=== PATIENT | male | born 1955 | race Caucasian/White ===

== ENCOUNTER 2020-01-09 10:01 | Outpatient (CLI) | payer OTHER, SELFPAY ==
--- NOTE | ~2020-01-09 | XR_ITS ---
EXAMINATION:XR_[id number] DATE: 01/09/2020 10:40 INDICATION: Neck pain TECHNIQUE: AP, lateral, lateral swimmers and odontoid views of the cervical spine are provided. COMPARISON: None FINDINGS: Alignment is normal. There is reversal of the normal cervical lordosis.The odontoid is inta ct. No fracture is identified. The vertebral body heights are maintained. There is mild loss of inter vertebral disc space height at C5-6 and C6-7. There is moderate to severe multilevel facet and uncove rtebral joint osteoarthritis. IMPRESSION: 1. Moderate to severe cervical spondylosis without acute findings. Reviewed, dictated and finalized at location A.
--- NOTE | ~2020-01-09 | XR_ITS ---
EXAMINATION: XR shoulder LT min 2V DATE: 01/09/2020 10:40 INDICATION: Left shoulder pain. TECHNIQUE: 4 views of left shoulder on 5 radiographs were obtained. COMPARISON: None. FINDINGS: Bone alignment is normal. No fracture. There is mild osteoarthritis of glenohumeral joint a nd severe osteoarthritis of acromioclavicular joint. Calcified left hilar and mediastinal lymph nodes are consistent with old granulomatous disease. IMPRESSION: 1. Polyarticular osteoarthritis. Reviewed, dictated and finalized at location E.
== END 2020-01-09 10:02 | disposition home or self-care (01) ==
PROVIDERS: PCP Internal Medicine; Visit Provider Internal Medicine
DX: M25.512 Pain in left shoulder (principal); M54.2 Cervicalgia
CPT/HCPCS: 72040; 73030

== ENCOUNTER 2021-04-09 17:40 | Outpatient (CLI) | payer MEDICARE, SELFPAY ==
[2021-04-09 20:06] LABS: SARS-CoV-2 RNA PCR Negative (Negative)
== END 2021-04-09 17:41 | disposition home or self-care (01) ==
LOC: CHSLAB 17:51
PROVIDERS: PCP Internal Medicine; Visit Provider Internal Medicine
DX: J06.9 Acute upper respiratory infection, unspecified (principal); Z20.822 Contact with and (suspected) exposure to COVID-19
CPT/HCPCS: C9803; U0003; U0005

== ENCOUNTER 2021-08-04 11:36 | Outpatient (CLI) | payer MEDICARE, SELFPAY ==
[2021-08-04 12:51] LABS: SARS-CoV-2 RNA PCR Negative (Negative)
== END 2021-08-04 11:37 | disposition home or self-care (01) ==
LOC: CHSLAB 11:39
PROVIDERS: PCP Internal Medicine; Visit Provider Nurse Practitioner Family
DX: Z20.822 Contact with and (suspected) exposure to COVID-19 (principal)
CPT/HCPCS: C9803; U0003; U0005

== ENCOUNTER 2021-09-09 11:27 | Outpatient (CLI) | payer MEDICARE, SELFPAY ==
[2021-09-09 15:03] LABS: Influenza Control Valid (Valid)
[2021-09-09 15:28] LABS: SARS-CoV-2 Ag Negative (Negative)
[2021-09-10 21:12] LABS: SARS-CoV-2 RNA PCR Negative
== END 2021-09-09 11:28 | disposition home or self-care (01) ==
LOC: CHSLAB 11:31
PROVIDERS: PCP Internal Medicine; Visit Provider Internal Medicine
DX: J06.9 Acute upper respiratory infection, unspecified (principal); Z20.822 Contact with and (suspected) exposure to COVID-19
CPT/HCPCS: 87081; 87426; 87804; 87880; C9803; U0003; U0005

== ENCOUNTER 2022-01-08 13:20 | Outpatient (CLI) | payer MEDICARE, SELFPAY ==
[2022-01-08] MEDS: diphenhydrAMINE HCl CAP 25 MG CAPSULE PO (13:35)
[2022-01-08] MEDS: ACETAMINOPHEN 325 MG TABLET 650 MG PO (13:35)
[2022-01-08] MEDS: FAMOTIDINE 20 MG TABLET PO (13:35)
[2022-01-08] MEDS: BEBTELOVIMAB 175 MG/2 ML VIAL IV PUSH (14:06)
[2022-01-08 14:12] VITALS: BMI 34.7
[2022-01-08 14:13] VITALS: BP 111/61; PULSE 59; RESP 16; TEMP 36.4; O2SAT 97
--- NOTE | 2022-01-08 14:17 | PC.NURSE ---
Patient here for Bebtelovimab injection r/t being covid positive. Eduction given. Permit signed. Pre meds and IV injection administered. SEE MAR. Tolerated well. Safe exit of hospital.
== END 2022-01-08 13:21 | disposition home or self-care (01) ==
PROVIDERS: PCP Nurse Practitioner Family; Visit Provider Nurse Practitioner Family
DX: U07.1 COVID-19 (principal); I10 Essential (primary) hypertension; J44.9 Chronic obstructive pulmonary disease, unspecified
CPT/HCPCS: M0222; Q0222

== ENCOUNTER 2022-12-24 11:13 | Outpatient (CLI) | payer MEDICARE, SELFPAY ==
[2022-12-24 11:28] LABS: Hematocrit 34.7 % (37.0-46.0); Hemoglobin 11.6 g/dL (12.4-15.3); Mean Corpuscular HGB Conc 33.4 g/dL (32.0-36.0); Mean Corpuscular Hemoglobin 30.1 pg (27.0-31.0); Mean Corpuscular Volume 89.9 fL (78.0-102.0); Mean Platelet Volume 9.3 fl (8.7-11.0); Platelet Count Result 208 K/mm3 (150-420); Red Blood Count 3.86 M/mm3 (4.70-6.10); Red Cell Distribution Width 13.1 % (11.6-14.4); White Blood Count 6.8 K/mm3 (4.8-10.8)
[2022-12-24 12:10] LABS: Appearance Urine Clear (Clear); Bilirubin Urine Negative (Negative); Blood Urine Negative (Negative); Color Urine Light Yellow (Yellow); Glucose Urine UA Negative (Negative); Ketones Urine Negative (Negative); Leukocyte Esterase Ur Negative (Negative); Nitrate Urine Negative (Negative); Protein Urine Negative (Negative); Specific Grav Ur <= 1.005 (1.010-1.020); Urobilinogen Urine 0.2 mg/dL (0.2-1.0); pH Urine 6.5 (5.0-8.0)
[2022-12-24 12:16] LABS: Add Urine Microscopic? NO
[2022-12-24 12:17] LABS: Band Neutrophils Percent 0 % (0-6); Basophils Percent Manual 0 % (0-1); Eosinophils Percent Manual 0 % (1-6); Lymphocytes Absolute Manual 1.42 K/mm3 (1.1-4.5); Lymphocytes Percent Manual 21 % (18-44); Monocytes Absolute Manual 0.88 K/mm3 (0.1-0.90); Monocytes Percent Manual 13 % (3-9); Neutrophils Absolute Manual 4.35 K/mm3 (1.3-6.7); Neutrophils Percent Manual 64 % (46-73); Platelet Estimate Adequate (Adequate); Total Cells Counted 100
[2022-12-24 12:32] LABS: Alanine Aminotransferase 33 U/L (16-63); Albumin Level 3.3 g/dL (3.4-5.0); Alkaline Phosphatase 77 U/L (46-116); Anion Gap 8 mmol/L (8-16); Aspartate Amino Transferase 27 U/L (15-37); Bilirubin,Total 0.5 mg/dL (0.00-1.00); Blood Urea Nitrogen 13 mg/dL (7-18); Calcium 8.8 mg/dL (8.5-10.1); Carbon Dioxide 29 mmol/L (21-32); Chloride 103 mmol/L (98-108); Estimated Glomerular Filt Rate 45; Glucose 141 mg/dL (70-99); Osmolality Calculated 292 mOsm/kg (285-295); Potassium 3.2 mmol/L (3.5-5.1); Prostate Specific Antigen 0.9 ng/mL (< OR = 4.0); Sodium 140 mmol/L (136-145); Total Protein 6.8 g/dL (6.4-8.2)
[2022-12-24 14:55] LABS: SARS-CoV-2 RNA PCR Negative (Negative)
== END 2022-12-24 11:14 | disposition home or self-care (01) ==
PROVIDERS: PCP Internal Medicine; Visit Provider Internal Medicine
DX: R50.9 Fever, unspecified (principal); R30.0 Dysuria; J06.9 Acute upper respiratory infection, unspecified; N41.9 Inflammatory disease of prostate, unspecified
CPT/HCPCS: 36415; 80053; 81003; 84153; 85025; 87086; U0003; U0005

== ENCOUNTER 2024-01-10 10:00 | Outpatient (RCR) | payer MEDICARE, SELFPAY ==
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
--- NOTE | 2023-10-13 13:32 | PC.NURSE ---
Spoke with Velia at [facility] in [place] and ordered the patient's Remeron 7.5mg PO every evening X 30 days. No refills.
[2023-10-18 10:21] VITALS: BP 132/70; PULSE 61; RESP 20; TEMP 36.4; O2SAT 97
[2023-10-20 10:46] VITALS: BP 131/73; PULSE 62; RESP 20; TEMP 37; O2SAT 98
--- NOTE | 2023-10-20 16:59 | PC.NURSE ---
No nursing group due to MD visit.
--- NOTE | 2023-10-25 07:47 | PC.NURSE ---
The patient has an IVIG infusion today and will not be able to attend his scheduled session.
--- NOTE | 2023-10-27 09:25 | PC.NURSE ---
No nursing group today due to MD visit.
[2023-10-27 10:14] VITALS: BP 135/67; PULSE 63; RESP 20; TEMP 36.7; O2SAT 97
--- NOTE | 2023-10-27 11:20 | WPDSLSPROGRE ---
Progress HPI Progress HPI Visit Attended By patient and staff History Obtained From patient Chief Complaint Two week follow-up for depression and anxiety HPI this is an admission follow-up. At our initial visit we started patient on Remeron 7.5 mg q.h.s.. He said he still had to take 0.125-0.25 mg of Xanax with the Remeron as the Remeron made him tired, but the Xanax actually put him to sleep. Patient says that the combination of the 2 produced the best sleep that he had had in quite some time. He has not been taking the cannabis gummies. No side effects to the medication. Enjoys the program and participates well. They are working on anxiety reduction techniques, among other issues. Also remains on venlafaxine XR 150 mg q.a.m.. Average Number of Hours of Sleep 7 Sleep Quality difficulty falling asleep and frequent awakening Change in PMFSH Releveant to Presenting Illness No Review of Systems Review of Systems Constitutional Reports fatigue and other ( Goiter, dyslipidemia, BPH) Eyes Reports WNL ENT Reports other ( FRANKIE, chronic sinusitis. Uses CPAP) Respiratory Reports other ( COPD) Cardiovascular Reports other ( angina, hypertension, erectile dysfunction) Gastrointestinal Reports WNL Musculoskeletal Reports other ( osteoarthritis with chronic pain) Neurologic Reports WNL Skin Reports other ( actinic keratosis) ADL's Reports WNL Exam Physical Exam Pain Yes Pain Location generalized Pain Characteristics chronic Psychiatric Exam Level of Consciousness alert Orientation person, place, time and situation Speech normal rate/tone/volume/prosody and coherent Language able to comprehend questions Mood less depressed/anxious Affect full range, appropriate and congruent Thought Processes/Form logical, linear and goal directed Delusions none Homicidal/Assaultive Ideation none Suicidal Ideation none Hallucinations none Attention/Concentration focused Attention/Concentration Testing Methods observation/interview Short Term Memory Impairment none STM Testing Methods clinical interview (assessment/observation) Mcfp Memory Impairment none LTM Testing Methods recall of biographical information Intellectual Functioning above average Intellectual Functioning Assessed By fund of knowledge and current events Insight good and improving Insight Assessed By ability to recognize & acknowledge mental illness, ability to understand the implications of mental illness, understanding of treatment options and ability to comply with treatment Judgement good and improving Judgement Assessed By exploring recent decision-making MMSE n/a Patient Assets patient is willing to accept treatment Patient Liabilities chronic insomnia and anxiety Assessment and Plan Clinical Impression/Diag Clinical Impression/Diagnosis F 33.1, progressing well. Increase Remeron to 15 mg q.h.s. Progress Overview Reason for Continued Services in an Intensive Outpatient Program continued impaired mood and.or depression, patient would decompenste at a lower level of care, not at baseline level of functioning and high risk for relapse Treatment To Be Provided medication management and group/individual/rec therapy Discharge Disposition/Level of Care PCP Anticipated Discharge 8-12 weeks Certification Statement Certification Statement I believe this patient requires the services of the Intensive Outpatient Program and that there is reasonable expectation that the patient will make timely and significant practical improvement in the presenting acute symptoms as a result of this Intensive Outpatient Program. I do not believe this patient will benefit from a lesser level of care or could be adequately and appropriately treated in a less restrictive environment. My decision is based on the
--- NOTE | 2023-10-27 15:25 | PC.NURSE ---
This nurse called and spoke with Velia at [facility] pharmacy in [place] to order the patient Remeron 15mg PO every evening times 30 days.
[2023-11-01 11:18] VITALS: BP 159/81; PULSE 76; RESP 20; TEMP 36.7; O2SAT 97
--- NOTE | 2023-11-02 14:06 | SLSTHERAPY ---
11/02/23 Derrick cancelled 11/03/23 group attendance due to medical appointment; Derrick is scheduled to return to group 11/08/23.
[2023-11-08 10:26] VITALS: BP 114/95; PULSE 60; RESP 20; O2SAT 97
--- NOTE | 2023-11-10 10:26 | PC.NURSE ---
No nursing group due to MD visit.
[2023-11-10 10:29] VITALS: BP 146/88; PULSE 60; RESP 20; TEMP 36.3; O2SAT 98
--- NOTE | 2023-11-15 08:41 | SLSTHERAPY ---
11/15/23 8:42 Derrick cancelled 11/15/23 group attendance due to medical appointment; Derrick is scheduled to return to group 11/17/23.
[2023-11-17 09:43] VITALS: BP 133/84; PULSE 63; RESP 20; TEMP 36.8; O2SAT 96
--- NOTE | 2023-11-17 10:50 | PC.NURSE ---
No nursing group due to MD visit.
--- NOTE | 2023-11-17 12:39 | WPDSLSPROGRE ---
Progress HPI Progress HPI Visit Attended By patient and staff History Obtained From patient Chief Complaint follow-up for depression and anxiety HPI this is a follow-up for depression anxiety. Our last visit we increased his Remeron from 7.5 mg q.h.s. to 15 mg q.h.s.. This is helping him sleep better most nights, and he says that even takes a little time to get to sleep he sleeps very soundly. Patient also feels that his energy during the day is adequate. He has not taken Xanax or cannabis gummies since our last visit, and remains on venlafaxine XR 150 mg q.a.m.. He enjoys the program participates well. Average Number of Hours of Sleep 7 Sleep Quality sleep throughout the night Change in PMFSH Releveant to Presenting Illness Yes Describe Changes in PMFSH As above Review of Systems Review of Systems Constitutional Reports fatigue and other Eyes Reports WNL ENT Reports other ( chronic sinusitis) Respiratory Reports other ( FRANKIE, uses CPAP) Cardiovascular Reports other ( angina, hypertension, erectile dysfunction) Gastrointestinal Reports WNL Musculoskeletal Reports other ( osteoarthritis with chronic pain) Neurologic Reports WNL Skin Reports other ( actinic keratosis) ADL's Reports WNL and Reports independent Exam Physical Exam Review of Lab Studies n/a Hygiene good General Behavior/Attitude Toward Examiner pleasant and cooperative Pain Yes Pain Location generalized, chronic Pain Characteristics chronic and aching Psychiatric Exam Level of Consciousness alert Orientation person, place, time and situation Speech normal rate/tone/volume/prosody and coherent Language able to name objects, able to repeat phrases, able to comprehend questions and able to follow instructions or commands Mood less depressed Affect full range, appropriate and congruent Thought Processes/Form logical, linear and goal directed Thought Content diminished depressive s Delusions none Homicidal/Assaultive Ideation none Suicidal Ideation none Hallucinations none Attention/Concentration focused Attention/Concentration Testing Methods observation/interview Short Term Memory Impairment none STM Testing Methods clinical interview (assessment/observation) Mcc Memory Impairment none LTM Testing Methods recall of biographical information Intellectual Functioning above average Intellectual Functioning Assessed By current events Insight good and improving Insight Assessed By ability to recognize & acknowledge mental illness, ability to understand the implications of mental illness, understanding of treatment options and ability to comply with treatment Judgement good and improving Judgement Assessed By exploring recent decision-making MMSE n/a Patient Assets patient is willing to accept treatment, above average intelligence Patient Liabilities chronic insomnia Assessment and Plan Clinical Impression/Diag Clinical Impression/Diagnosis F 33.1, progressing well, continue IOP, monitor meds Progress Overview Reason for Continued Services in an Intensive Outpatient Program continued impaired mood and.or depression, patient would decompenste at a lower level of care and not at baseline level of functioning Treatment To Be Provided medication management and group/individual/rec therapy Discharge Disposition/Level of Care PCP Anticipated Discharge 8-12 weeks Certification Statement Certification Statement I believe this patient requires the services of the Intensive Outpatient Program and that there is reasonable expectation that the patient will make timely and significant practical improvement in the presenting acute symptoms as a result of this Intensive Outpatient Program. I do not believe this patient will benefit from a lesser level of care or co
--- NOTE | 2023-11-17 12:58 | WPDSLSPROGRE ---
Progress HPI Progress HPI Visit Attended By patient and staff History Obtained From patient Chief Complaint follow-up for depression anxiety HPI this is a follow-up for depression and anxiety. At our last visit we increased Remeron from 7.5-15 mg q.h.s. and he says that he is sleeping better with this. Even on the nights that he does not get to sleep immediately, when he does fall asleep he sleeps soundly. Also has sufficient daytime energy. Patient has not been taking cannabis gummies or Xanax since I last saw him. He is also on venlafaxine 150 mg Q a.m.. Enjoys program participates well. He has decided that for the meantime he feels is best for him to not have a relationship with his brother at this time, as his brother is very hateful and negative. Average Number of Hours of Sleep 7 Sleep Quality sleep throughout the night Change in PMFSH Releveant to Presenting Illness Yes Describe Changes in PMFSH As above Review of Systems Review of Systems Constitutional Reports fatigue and other ( goiter, dyslipidemia, BPH) Eyes Reports WNL ENT Reports other ( chronic sinusitis) Respiratory Reports other ( FRANKIE, uses CPAP) Cardiovascular Reports other ( angina, hypertension, erectile dysfunction) Gastrointestinal Reports WNL Musculoskeletal Reports other ( osteoarthritis with chr) Neurologic Reports WNL Skin Reports other ( actinic keratosis) ADL's Reports WNL Exam Physical Exam Review of Lab Studies n/a Hygiene good General Behavior/Attitude Toward Examiner pleasant and cooperative Pain Yes Pain Location generalized Pain Characteristics chronic Psychiatric Exam Level of Consciousness alert Orientation person, place, time and situation Speech normal rate/tone/volume/prosody and coherent Language able to comprehend questions Mood less depressed/anxious Affect full range, appropriate and congruent Thought Processes/Form logical, linear and goal directed Thought Content diminish depressive and anxiety symptoms Delusions none Homicidal/Assaultive Ideation none Suicidal Ideation none Hallucinations none Attention/Concentration focused Attention/Concentration Testing Methods observation/interview Short Term Memory Impairment none STM Testing Methods clinical interview (assessment/observation) Long-Term Memory Impairment none LTM Testing Methods recall of biographical information Intellectual Functioning above average Intellectual Functioning Assessed By current events Insight good and improving Insight Assessed By ability to recognize & acknowledge mental illness, ability to understand the implications of mental illness, understanding of treatment options and ability to comply with treatment Judgement good and improving Judgement Assessed By exploring recent decision-making MMSE n/a Patient Assets patient is willing to accept treatment, above-average intelligence Patient Liabilities chronic insomnia, impaired relationship with brother Assessment and Plan Clinical Impression/Diag Clinical Impression/Diagnosis F 33.1, progressing well, continue meds, continue IOP Progress Overview Reason for Continued Services in an Intensive Outpatient Program continued impaired mood and.or depression, patient would decompenste at a lower level of care and not at baseline level of functioning Treatment To Be Provided medication management and group/individual/rec therapy Discharge Disposition/Level of Care PCP Anticipated Discharge 8-12 weeks Certification Statement Certification Statement I believe this patient requires the services of the Intensive Outpatient Program and that there is reasonable expectation that the patient will make timely and significant practical improvement in the presenting acute symptoms as a result of this Int
[2023-11-22 10:28] VITALS: BP 150/79; PULSE 64; RESP 20; TEMP 36.2; O2SAT 96
--- NOTE | 2023-11-23 07:44 | SLSTHERAPY ---
11/23/23 7:45 Derrick cancelled 11/24/23 group attendance due to previously scheduled leisure activities with family; Derrick is scheduled to return to group 11/29/23.
[2023-11-29 09:14] VITALS: BP 158/76; PULSE 64; RESP 20; TEMP 36.2; O2SAT 97
--- NOTE | 2023-11-29 09:21 | PC.NURSE ---
No nursing group due to nurse meeting.
--- NOTE | 2023-12-01 10:01 | PC.NURSE ---
No nursing group due to MD visit.
[2023-12-01 10:19] VITALS: BP 149/84; PULSE 62; RESP 20; TEMP 36.4; O2SAT 98
--- NOTE | 2023-12-06 09:00 | PC.NURSE ---
The patient had his IVIG infusion today and will not be attending his scheduled session.
[2023-12-08 10:09] VITALS: BP 135/74; PULSE 88; RESP 20; TEMP 36.5; O2SAT 98
--- NOTE | 2023-12-08 10:23 | PC.NURSE ---
No nursing group due to MD visit.
[2023-12-13 10:07] VITALS: BP 134/74; PULSE 75; RESP 20; TEMP 37; O2SAT 98
--- NOTE | 2023-12-15 09:53 | PC.NURSE ---
No nursing group due to MD visit.
[2023-12-15 10:37] VITALS: BP 136/74; PULSE 84; RESP 20; TEMP 36.4; O2SAT 98
--- NOTE | 2023-12-15 11:16 | WPDSLSPROGRE ---
Progress HPI Progress HPI Visit Attended By patient and staff History Obtained From patient Chief Complaint follow Up for depression and anxiety HPI this is a routine follow-up for depression anxiety. Patient is doing well, enjoys the program and participates appropriately. They have been working on anxiety and coping skills, among other issues. He continues on Remeron 15 mg q.h.s. and says that this helps him go to sleep for couple of hours, but then he wakes up for up to an hour and a half and has to get up and read, etc.. Patient does have sleep apnea and has a CPAP. He states that he his sleep apnea and machine were re-evaluated last year and he is on a different machine which is adaptive. Patient states he has not had to take the cannabis gummies are Xanax. He also is on venlafaxine 150 mg q.a.m.. Again, he has decided that for the meantime P feels it is best for him to not have a relationship with his brother at this time, who is very hateful and negative. Average Number of Hours of Sleep 7 Sleep Quality frequent awakening Change in PMFSH Releveant to Presenting Illness No Review of Systems Review of Systems Constitutional Reports fatigue and other ( Goiter, dyslipidemia, BPH) Eyes Reports WNL ENT Reports other ( chronic sinusitis) Respiratory Reports other ( FRANKIE, uses CPAP) Cardiovascular Reports other ( angina, hypertension, erectile dysfunction) Gastrointestinal Reports WNL Musculoskeletal Reports other ( osteoarthritis with chronic pain) Neurologic Reports WNL Skin Reports other ( actinic keratosis) ADL's Reports WNL Exam Physical Exam Review of Lab Studies n/a Hygiene good General Behavior/Attitude Toward Examiner pleasant and cooperative Pain Yes Pain Location generalized Pain Characteristics chronic Psychiatric Exam Level of Consciousness alert Orientation person, place, time and situation Speech normal rate/tone/volume/prosody and coherent Language able to comprehend questions Mood less depressed Affect full range, appropriate and congruent Thought Processes/Form logical, linear and goal directed Thought Content diminished depressive s Delusions none Homicidal/Assaultive Ideation none Suicidal Ideation none Hallucinations none Attention/Concentration focused Attention/Concentration Testing Methods observation/interview Short Term Memory Impairment none STM Testing Methods clinical interview (assessment/observation) Equipment Service Technician Memory Impairment none LTM Testing Methods recall of biographical information Intellectual Functioning above average Intellectual Functioning Assessed By fund of knowledge Insight fair and improving Insight Assessed By ability to recognize & acknowledge mental illness, ability to understand the implications of mental illness, understanding of treatment options and ability to comply with treatment Judgement fair and improving Judgement Assessed By exploring recent decision-making MMSE n/a Patient Assets patient is willing to accept treatment,intelligent, able to perform ADLs Patient Liabilities chronic insomnia, impaired relationship with brother Assessment and Plan Clinical Impression/Diag Clinical Impression/Diagnosis F 33.1, progressing well, monitor meds, continue IOP Progress Overview Reason for Continued Services in an Intensive Outpatient Program continued impaired mood and.or depression, patient would decompenste at a lower level of care, not at baseline level of functioning and high risk for relapse Treatment To Be Provided medication management Discharge Disposition/Level of Care PCP Anticipated Discharge 8-12 weeks Certification Statement Certification Statement I believe this patient requires the services of the Intensive Outpatient Program and that there is reas
[2023-12-20 10:20] VITALS: BP 129/80; PULSE 60; RESP 20; TEMP 36.9; O2SAT 97
[2023-12-22 10:25] VITALS: BP 121/76; PULSE 59; RESP 20; TEMP 36.9; O2SAT 97
--- NOTE | 2023-12-28 08:22 | SLSTHERAPY ---
12/28/2023 8:23 Derrick cancelled 12/27/2023 group attendance due to medical appointment; Derrick is scheduled to return to group 12/29/2023.
--- NOTE | 2023-12-29 09:11 | PC.NURSE ---
No nursing group due to MD visit.
[2023-12-29 10:13] VITALS: BP 142/73; PULSE 60; RESP 20; TEMP 36.7; O2SAT 98
[2024-01-03 10:23] VITALS: BP 147/75; PULSE 60; RESP 20; TEMP 36.3; O2SAT 97
[2024-01-05 10:04] VITALS: BP 133/85; PULSE 60; RESP 20; TEMP 36.9; O2SAT 97
--- NOTE | 2024-01-05 10:16 | PC.NURSE ---
No nursing group due to MD visit.
[2024-01-10 10:30] VITALS: BP 156/80; PULSE 60; RESP 20; TEMP 37.1; O2SAT 96
--- NOTE | 2024-01-12 14:30 | SLSTHERAPY ---
2:31 01/12/24 Derrick cancelled group attendance for 01/16 & 01/19/2024 due to medical appointments; Derrick is scheduled to return to group 01/24/2024.
== END 2024-01-11 23:59 | disposition home or self-care (01) ==
LOC: CHSSENLIFE 10:00
PROVIDERS: PCP Internal Medicine; Visit Provider Psychiatry & Neurology Psychiatry
DX: F33.1 Major depressive disorder, recurrent, moderate (principal)
CPT/HCPCS: 90792; 90853; 99213; 99214; G0463

== ENCOUNTER 2024-03-01 11:00 | Outpatient (RCR) | payer MEDICARE, SELFPAY ==
[2024-01-12 00:02] VITALS: BP 156/80; PULSE 60; RESP 20; TEMP 37.1; O2SAT 96
--- NOTE | 2024-01-12 12:11 | WPDSLSPROGRE ---
Progress HPI Progress HPI Visit Attended By patient and staff History Obtained From patient Chief Complaint routine follow-up for depression and anxiety HPI this is a routine follow-up for depression and anxiety. Patient enjoys the program and participates well. They have been working on grief this week, among other topics. He continues on Remeron 15 mg q.h.s. and says that he thinks it is finally beginning to have the full effect as he basically slept through the night last night. He does have sleep apnea and uses a CPAP. Patient is also on venlafaxine 50 mg q.a.m.. He recently had his Xanax refilled but has not had to take it for a month, and has not had to take the cannabis gummies as well. Still estranged from brother, but he has accepted this. Average Number of Hours of Sleep 7 Sleep Quality sleep throughout the night Change in PMFSH Releveant to Presenting Illness Yes Describe Changes in PMFSH Improved sleep as above Review of Systems Review of Systems Constitutional Reports fatigue and other ( goiter, dyslipidemia, BPH) Eyes Reports WNL ENT Reports other ( chronic sinusitis) Respiratory Reports other ( FRANKIE, uses CPAP) Cardiovascular Reports other ( angina, hypertension, erectile dysfunction) Gastrointestinal Reports WNL Musculoskeletal Reports other ( osteoarthritis with chronic pain) Skin Reports other ( actinic keratosis) ADL's Reports WNL Exam Physical Exam Review of Lab Studies n/a Hygiene good General Behavior/Attitude Toward Examiner pleasant and cooperative Pain Yes Pain Location generalized Pain Characteristics chronic Psychiatric Exam Level of Consciousness alert Orientation person, place, time and situation Speech normal rate/tone/volume/prosody and coherent Language able to name objects, able to repeat phrases, able to comprehend questions and able to follow instructions or commands Mood less depressed Affect full range, appropriate and congruent Thought Processes/Form logical, linear and goal directed Thought Content diminished depressive symptoms Delusions none Homicidal/Assaultive Ideation none Suicidal Ideation none Hallucinations none Attention/Concentration focused Attention/Concentration Testing Methods observation/interview Short Term Memory Impairment none STM Testing Methods clinical interview (assessment/observation) Skilled Nursing Memory Impairment none LTM Testing Methods recall of biographical information Intellectual Functioning above average Intellectual Functioning Assessed By fund of knowledge Insight good and improving Insight Assessed By ability to recognize & acknowledge mental illness, ability to understand the implications of mental illness, understanding of treatment options and ability to comply with treatment Judgement good and improving Judgement Assessed By exploring recent decision-making MMSE n/a Patient Assets patient is willing to accept treatment, able to perform ADLs Patient Liabilities chronic insomnia, estrangement from brother Assessment and Plan Clinical Impression/Diag Clinical Impression/Diagnosis F 33.1, progressing well. Monitor meds. Continue IOP Progress Overview Reason for Continued Services in an Intensive Outpatient Program continued impaired mood and.or depression, patient would decompenste at a lower level of care, not at baseline level of functioning and high risk for relapse Treatment To Be Provided medication management and group/individual/rec therapy Discharge Disposition/Level of Care PCP Anticipated Discharge 8-12 weeks Certification Statement Certification Statement I believe this patient requires the services of the Intensive Outpatient Program and that there is reasonable expectation that the patient will make timely and significant prac
--- NOTE | 2024-01-24 09:43 | PC.NURSE ---
No nursing group due to nurse meeting.
[2024-01-24 10:01] VITALS: BP 138/76; PULSE 60; RESP 20; TEMP 36.9; O2SAT 97
--- NOTE | 2024-01-26 09:38 | PC.NURSE ---
No nursing group due to MD visit.
[2024-01-26 10:13] VITALS: BP 136/72; PULSE 64; RESP 20; TEMP 36.5; O2SAT 96
[2024-01-31 10:01] VITALS: BP 127/85; PULSE 60; RESP 20; TEMP 36.9; O2SAT 97
--- NOTE | 2024-02-01 08:08 | SLSTHERAPY ---
02/01/2024 Derrick cancelled group attendance for 02/02/2024 & 02/07/2024 due to vacation; Derrick is scheduled to return to group 02/09/2024. 8:09
--- NOTE | 2024-02-09 10:01 | PC.NURSE ---
No nursing group due to MD visit.
[2024-02-09 10:48] VITALS: BP 110/76; PULSE 66; RESP 20; TEMP 36.9; O2SAT 97
--- NOTE | 2024-02-09 12:44 | WPDSLSPROGRE ---
Progress HPI Progress HPI Visit Attended By patient and staff History Obtained From patient Chief Complaint four-week follow-up HPI this is a routine follow-up for depression and anxiety. Patient enjoys the program and participates well. They are working on values this week, among other topics. Continues on Remeron 15 mg q.h.s.. Has some difficulty getting to sleep at manages to stay asleep after this. He does have sleep apnea and uses CPAP. Patient is also on venlafaxine 150 mg q.day. Takes 0.25 mg of Xanax about twice a week, and has not had any cannabis gummies recently. Patient is going to have neck surgery next month. Average Number of Hours of Sleep 8 Sleep Quality difficulty falling asleep Change in PMFSH Releveant to Presenting Illness Yes Describe Changes in PMFSH Upcoming surgery Review of Systems Review of Systems Constitutional Reports fatigue and other ( goiter, dyslipidemia, BPH) Eyes Reports WNL ENT Reports other ( chronic sinusitis) Respiratory Reports other ( FRANKIE, uses CPAP) Cardiovascular Reports other ( angina, hypertension, erectile dysfunction) Gastrointestinal Reports WNL Musculoskeletal Reports other Neurologic Reports other ( osteoarthritis with chronic pain, neuropathy) Skin Reports WNL ADL's Reports WNL Exam Physical Exam Review of Lab Studies n/a Hygiene good General Behavior/Attitude Toward Examiner pleasant and cooperative Pain Yes Pain Location neck Pain Characteristics chronic and aching Psychiatric Exam Level of Consciousness alert Orientation person, place, time and situation Speech normal rate/tone/volume/prosody and coherent Language able to comprehend questions Mood less depressed/anxious Affect full range, appropriate and congruent Thought Processes/Form logical, linear and goal directed Thought Content diminished depressive and anxiety symptoms Delusions none Homicidal/Assaultive Ideation none Suicidal Ideation none Hallucinations none Attention/Concentration focused Attention/Concentration Testing Methods observation/interview Short Term Memory Impairment none STM Testing Methods clinical interview (assessment/observation) Custodial Memory Impairment none LTM Testing Methods recall of biographical information Intellectual Functioning above average Intellectual Functioning Assessed By fund of knowledge and current events Insight good and improving Insight Assessed By ability to recognize & acknowledge mental illness, ability to understand the implications of mental illness, understanding of treatment options and ability to comply with treatment Judgement good and improving Judgement Assessed By exploring recent decision-making MMSE n/a Patient Assets patient is willing to accept treatment, able to perform ADLs, intelligent Patient Liabilities chronic insomnia, estrangement from brother Assessment and Plan Clinical Impression/Diag Clinical Impression/Diagnosis F 33.1, progressing well. Monitor meds. Continue IOP Progress Overview Reason for Continued Services in an Intensive Outpatient Program continued impaired mood and.or depression, patient would decompenste at a lower level of care and not at baseline level of functioning Treatment To Be Provided medication management and group/individual/rec therapy Discharge Disposition/Level of Care PCP Anticipated Discharge 8-12 weeks Certification Statement Certification Statement I believe this patient requires the services of the Intensive Outpatient Program and that there is reasonable expectation that the patient will make timely and significant practical improvement in the presenting acute symptoms as a result of this Intensive Outpatient Program. I do not believe this patient will benefit from a lesser level of car
[2024-02-14 10:10] VITALS: BP 145/86; PULSE 60; RESP 20; TEMP 37.2; O2SAT 96
[2024-02-16 10:16] VITALS: BP 140/84; PULSE 60; RESP 20; TEMP 37.1; O2SAT 98
--- NOTE | 2024-02-16 12:44 | PC.NURSE ---
No nursing group due to MD visit.
[2024-02-21 10:35] VITALS: BP 146/88; PULSE 60; RESP 20; TEMP 36.6; O2SAT 97
--- NOTE | 2024-02-22 07:49 | SLSTHERAPY ---
02/22/2024 Derrick cancelled 02/22/24 group attendance due to preoperative medical procedures in preparation for surgery 02/28/2024. 7:50
--- NOTE | 2024-03-01 12:46 | WPDSLSDC ---
Discharge Summary Mental Status unable to determine. Patient was not seen today. Reason for Admission Patient is a 69-year-old white male with a long history of depression and anxiety. His main stressor at the time admission involved his relationship with his brother, who has significantly different political views, which has caused some friction between the 2 of them. At that time he endorsed feelings of depressed and anxious mood, loss of interest, early and middle insomnia, fluctuating appetite, irritability, racing thoughts especially at nighttime, fatigue, restlessness, worrying, and fidgety. He was admitted on Xanax 0.25 mg q.h.s. p.r.n. and venlafaxine XR 150 mg q.a.m., which he said he been on for at least 15 years. Treatment Plan Utilization/Treatment Patient was admitted supportive/cognitive therapy utilized. Provided educational many subjects including safety, nutrition, overall general health, falls, coping skills, grief, behavior activation, self-care, communication, boundaries, benefits of exercising, organization, exercise, among other topics. Mirtazapine was started for sleep on 10/13/2023 on 7.5 mg and increase to 50 mg q.h.s. on 10/27/2023. Response to [place]/Treatment Course Summary All patient's symptoms improved throughout the course of hospitalization. The Remeron was especially effective for sleep and mood and he was able to stop taking his Xanax. Patient has stopped communicating with his brother at this time which has lessened the patient's stress level. He was abruptly discharged due to upcoming neck surgery, as he will be unable to drive for 8 weeks. Aftercare Plan Continue current medications. Follow up with PCP p.r.n.. Continue all activities as tolerated. The patient is living home with his and will continue to do so. Staff will follow up on patient after surgery to check and see how he is doing. Discharge Diagnosis F 33.1
== END 2024-03-01 13:43 | disposition home or self-care (01) ==
LOC: CHSSENLIFE 11:00
PROVIDERS: PCP Internal Medicine; Visit Provider Psychiatry & Neurology Psychiatry
DX: F33.1 Major depressive disorder, recurrent, moderate (principal)
CPT/HCPCS: 90853; 99213; G0463

== ENCOUNTER 2024-08-31 14:55 | Outpatient (CLI) | payer MEDICARE, SELFPAY ==
[2024-08-31 15:49] LABS: Anion Gap 9 mmol/L (4-12); Blood Urea Nitrogen 24 mg/dL (7-18); Calcium 9.6 mg/dL (8.5-10.1); Carbon Dioxide 28 mmol/L (21-32); Chloride 102 mmol/L (98-108); Estimated Glomerular Filt Rate 44; Glucose 90 mg/dL (70-99); Osmolality Calculated 292 mOsm/kg (285-295); Potassium 4.5 mmol/L (3.5-5.1); Sodium 139 mmol/L (136-145)
== END 2024-08-31 14:56 | disposition home or self-care (01) ==
LOC: CHSLAB 14:58
PROVIDERS: PCP Internal Medicine; Visit Provider Internal Medicine
DX: I10 Essential (primary) hypertension (principal)
CPT/HCPCS: 36415; 80048

== ENCOUNTER 2024-12-14 14:05 | Outpatient (CLI) | payer MEDICARE, SELFPAY ==
--- NOTE | ~2024-12-14 | XR_ITS ---
EXAMINATION: XR chest 2V 12/14/2024 14:28 INDICATION: Productive cough and wheezing PROCEDURE: 2 view chest COMPARISON: 12/06/2016 FINDINGS: The lungs are clear. The cardiomediastinal silhouette is within normal limits. There are no pleural effusions. There is no pneumothorax suspected. Calcified granuloma left lower lobe. IMPRESSION: 1: NO ACUTE CARDIOPULMONARY DISEASE. Reviewed, dictated and finalized at location A.
--- OUTSIDE RECORDS SUMMARY | 2024-12-14 14:11 | XMS_ITS | Encounter Summary ---
Author Organization [facility] Address [address] [place] [address] Phone Care Team Providers Care Rotor Casting Machine Setup Operator Name Role Phone Nusrat Little MD Primary Care Provider [phone] Tammy Branch RN Unavailable [phone] Derik Oglesby MD Primary Care Provider Encounter Details Date Type Department Care Team (Latest Contact Info) Description 09/12/2020 Orders Only [facility] Fahad Nobles MD [address] [place] [address] Social History Tobacco Use Types Packs/Day Years Used Date Smoking Tobacco: Former Cigarettes Q uit: 2002 Smokeless Tobacco: Never Alcohol Use Standard Drinks/Week Comments No 0 (1 standard drink = 0.6 oz pur e alcohol) Sex and Gender Information Value Date Recorded Sex Assigned at Not on file Legal Sex Male 3:08 AM [employer]ADDLE [employer] Gender Identity Not on file Sexual Orientation Straight 11/24/2020 7: 05 PM CDT documented as of this encounter Plan of Treatment Not on file documented as of this encounter Procedures Procedure Name Priority Date/Time Associated Diagnosis Comments SCAN - LABS 09/12/2020 documented in this encounter Results * SCAN - LABS (09/12/2020) us Fahad Yan Same, MD Final Re sult documented in this encounter Visit Diagnoses Not on filedocumented in this encounter Additional Health Concerns Infection Onset Date Last Indicated Resolved Time COVID19 01/11/2022 01/11/2022 01/23/2022 3:05 AM CDT documented as of this encounter Care Teams Rotor Casting Machine Setup Operator Relationship Specialty Start Date End Date Nusrat Little MD [address] [place] [address] PCP - General Internal Medicine 06/29/18 08/07/24 Derik Oglesby MD [address] [place] [address] PCP - General Internal Medicine 08/08/24 Tammy Branch RN [phone] [address] [facility]le Shear Operator 03/05/24 03/29/24 documented as of this encounter
--- OUTSIDE RECORDS SUMMARY | 2024-12-14 14:11 | XMS_ITS | Referral Summary ---
Author Organization [facility] Address [address] [place] [id number] Care Team Providers Care Noteman Name Role Phone Derik Oglesby MD Primary Care Provider [phone] Encounters Date Type Department Care Team Description 12/04/2024 11:30 AM CDT Office Visit [facility] Allergy and Immunology [address] [place] [address] Office [address] [place] [address] Apurva Powell, DIAN Common variable immunodeficiency (HCC) (Primary Dx) 12/04/2024 9:30 AM CDT Infusion [facility] Infusion Therapy [address] [place] [address] Building [address] [place] [address] Common variable agammaglobulinemia (Primary Dx) 11/13/2024 9:30 AM CDT Infusion [facility] Infusion Therapy [address] [place] [address] Office [address] [place] [address] Common variable agammaglobulinemia (Primary Dx) 10/23/2024 9:30 AM HOSPITAL SCIENTIST Infusion [facility] Infusion Therapy [address] [place] [address] Office [address] [place] [address] Common variable agammaglobulinemia (Primary Dx) 10/02/2024 9:30 AM HOSPITAL SCIENTIST Infusion [facility] Infusion Therapy [address] [place] [address] Office [address] [place] [address] Common variable agammaglobulinemia (Primary Dx) from Last 3 Months Allergies No known active allergies Medications cetirizine (ZyrTEC) 5 mg tabletIndication s:1 tablet the morning of IVIG infusion Take 1 tablet (5 mg total) by mouth every 21 days 3 Active clobetasol (CLOBEX) 0.05 % shampooIndicatio ns:Scalp Psoriasis Apply 1 application (deactivated) topically as needed (scalp psoriasis) 6 Active venlafaxine XR (EFFEXOR-XR) 150 mg 24 hr capsuleIndicatio ns:Anxiety with Depression Take 1 capsule (150 mg total) by mouth every morning 7 Active tiZANidine (ZANAFLEX) 4 mg tabletIndication s:Muscle Spasm Take 1 tablet (4 mg total) by mouth every 8 (eight) hours as needed for muscle spasms 1 Active albuterol HFA (PROVENTIL HFA,VENTOLIN HFA,PROAIR HFA) 90 mcg/actuation inhalerIndicatio ns:Chronic Obstructive Pulmonary Disease Inhale 2 puffs every 4 (four) hours as needed for wheezing or shortness of breath 1 Active terazosin (HYTRIN) 10 mg capsuleIndicatio ns:hypertension Take 1 capsule (10 mg total) by mouth 2 (two) times a day After lunch and HS 2 Active carvediloL (COREG) 25 mg tabletIndication s:hypertension Take 1 tablet (25 mg total) by mouth 2 (two) times a day with meals Active nitroglycerin (NITROSTAT) 0.[address] 1 TABLET (0.4 MG TOTAL) UNDER THE TONGUE EVERY 5 (FIVE) MINUTES NEEDED FOR CHEST PAIN MAY REPEAT DOSE Q 5 MIN, UP TO 3 DOSES TOTAL 25 tablet 3 2 Active atorvastatin (LIPITOR) 40 mg tabletIndication s:hyperlipidemia Take 1 tablet (40 mg total) by mouth nightly 3 Active indapamide (LOZOL) 1.25 mg tabletIndication s:hypertension Take 1 tablet (1.25 mg total) by mouth every morning 3 Active dilTIAZem CD 120 mg 24 hr capsuleIndicatio ns:hypertension Take 1 capsule (120 mg total) by mouth every morning 3 Active fluticasone propionate (FLONASE) 50 mcg/actuation nasal sprayIndications :Allergic Rhinitis Administer 1 spray into each nostril daily as needed for rhinitis or allergies Active Klor-Con M10 10 mEq CR tabletIndication s:hypokalemia prevention Take 1 tablet/capsule (10 mEq total) by mouth 2 (two) times a day 3 Active lisinopriL (PRINIVIL,ZESTRI L) 40 mg tablet TAKE 1 TABLET BY MOUTH EVERY DAY AT NIGHT 90 tablet 1 4 Active mirtazapine (REMERON) 15 mg tabletIndication s:sleep Take 1 tablet (15 mg total) by mouth nightly 4 Active umeclidinium (INCRUSE ELLIPTA) 62.5 mcg/actuation blister with deviceIndication s:Bronchospasm Prevention with COPD Inhale 1 puff (62.5 mcg total) acid remover before breakfast Active acetaminophen (TYLENOL) 325 mg tabletIndication s:Fever,Pain Take 2 tablets (650 mg total) by mouth every 4 (four) hours as needed for pain 90 tablet 4 Active aspirin 81 mg enteric coated tabletIndication s:prevention of thrombosis,heart health Take 1 tablet (81 mg total) by mouth every morning Do not take this medication until 03/14/24 4 Active gabapentin (NEURONTIN) 300 mg capsuleIndicatio ns:Neuropathic Pain Take 1 capsule (300 mg total) by mouth nightly Follow up with your PCP regarding the dosage of this medication. 4 03/02/20 25 Active predniSONE (DELTASONE) 10 mg tablet Follow up with the prescribing physician regarding the next dose of this medication. Take 10 mg prednisone on morning of IVIG infusion. 4 Active immune globulin (GAMUNEX-C,GAMMA KED) infusionIndicati ons:Hypogammaglo bulinemia - last dose 02/07/2024; next dose 02/27/2024 Infuse 500 mL (50 g total) into a venous catheter every 21 days Follow up with the prescribing physician regarding the next dose of this medication. 4 Active senna (SENOKOT) 8.6 mg tabletIndication s:constipation Take 2 tablets by mouth 2 (two) times a day 60 tablet 4 03/02/20 25 Active Additional Information Patient not taking.Reported on 12/04/2024 cyclobenzaprine (FLEXERIL) 10 mg tablet Take 1 tablet (10 mg total) by mouth 3 (three) times a day as needed for muscle spasms 90 tablet 4 Active traMADoL (ULTRAM) 50 mg tablet Take 1 tablet (50 mg total) by mouth every 6 (six) hours as needed for pain 28 tablet 4 Active Additional Information Patient not taking.Reported on 12/04/2024 hydrALAZINE (APRESOLINE) 100 mg tablet Take 1 tablet (100 mg total) by mouth 3 (three) times a day 270 tablet 2 4 Active Additional Information Patient not taking.Reported on 12/04/2024 ALPRAZolam (XANAX) 0.25 mg tablet Take 2 tablets (0.5 mg total) by mouth nightly 5 Active spironolactone (ALDACTONE) 25 mg tablet 5 Active hydrALAZINE (APRESOLINE) 50 mg tablet Take 2 tablets (100 mg total) by mouth 3 (three) times a day 5 Active Hospital, Clinic, or Other Facility Administered Medication Ordered Dose Route Frequency Start Date End Date Status cyclobenzaprine (FLEXERIL) tablet 10 mg 10 mg oral 3 times daily PRN 03/03/2024 Active Active Problems Problem Noted Date Diagnosed Date Cervical myelopathy 02/01/2024 Sensorineural hearing loss (SNHL) of both ears 0 11/28/2023 Erectile dysfunction of organic origin 3 Encounter for screening colonoscopy 06/02/2022 Overview (06/02/2022): Added automatically from request for surgery [id number] Chest pain 01/12/2022 Coronary artery disease of n ative artery of [place] heart with stable angina pectoris 06/24/2021 Microvascular angina 06/24/2021 Dyspnea on exertion 06/24/2021 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 Deviated nasal septum 05/22/2018 Overview (05/22/2018): Added automatically from request for surgery [id number] Hypertrophy of nasal turbinates 05/22/2018 Overview (05/22/2018): Added automatically from request for surgery [id number] Chronic sinusitis 12/15/2017 Obesity with body mass index 30 or greater 10/01 Elbow pain 03/25/2016 Cutaneous abscess 05/18/2011 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 Hyperlipidemia Family history of premature CAD Essential hypertension COVID-19 Immunizations Immunization Administration Dates Next Due Influenza, Quadrivalent, Spl it, Preservative Free, Intramuscular 07/28/2020,09/19/2019,06/06/2018,04/21 Influenza, Trivalent, IM (MDV) 05/09/2013 Pl[employer] (J&J) SARS-CoV-2 Vaccination 10/27/2020 Moderna SARS-CoV-2 Monovalen t Vaccination (12+ YRS) 06/15/2021 Pneumococcal Conjugate PCV 13 03/26/2015 Pneumococcal Polysaccharide PPV23 07/20/2018, ZOSTER Recombinant 09/24/2020,09/19/2019 Social History Tobacco Use Types Packs/Day Years Used Date Smoking Tobacco: Former Cigarettes 1 23 1 - 2002 Passive Smoke Exposure: Past Smokeless Tobacco: Never Tobacco Cessation:Counseling Given: Not Answered Alcohol Use Standard Drinks/Week Comments No 0 (1 standard drink = 0.6 oz pur e alcohol) [facility] Utilities Answer Date Recorded In the past 12 months has e electric, gas, oil, or water company threatened to shut off services in your home? No 03/06/2024 Social Connection and Isolat ion Panel [NHANES] Answer Date Recorded In a typical week, how many times do you talk on the phone with family, friends, or neighbors? More than three times a week 03/06/2024 How often do you get togethe r with friends or relatives? More than three times a week 03/06/2024 How often do you attend chur ch or protestant services? More than 4 times per year 03/06/2024 Do you belong to any clubs o r organizations such as latter-day groups, unions, fraternal or athletic groups, or school groups? No 03/06/2024 How often do you attend meet ings of the clubs or organizations you belong to? Never 03/06/2024 Are you , , di vorced, , never , or living with a partner? 03/06/2024 AUDIT-C Answer Date Recorded Q1: How often do you have a drink containing alc ohol? 2-4 times a month 12/04/2024 Q2: How many drinks containi ng alcohol do you have on a typical day when you are drinking? 1 or 2 12/04/2024 Q3: How often do you have si x or more drinks on one occasion? Never 12/04/2024 Overall Financial Resource Strain (CARDIA) Answe r Date Recorded How hard is it for you to pa y for the very basics like food, housing, medical care, and heating? Not very hard 03/06/2024 Hunger Vital Sign Answer Date Recorded Within the past 12 months, y ou worried that your food would run out before you got the money to buy more. Never true 03/06/20 24 Within the past 12 months, t he food you bought just didn't last and you didn't have money to get more. Never true 03/06/2024 PRAPARE - Transportation Answer Date Re corded In the past 12 months, has l ack of transportation kept you from medical appointments or from getting medications? No 02/19 In the past 12 months, has l ack of transportation kept you from meetings, work, or from getting things needed for daily living? No 03/06/2024 Housing Stability Vital Sign Answer Casa e Recorded In the last 12 months, was t here a time when you were not able to pay the mortgage or rent on time? No 03/06/2024 In the past 12 months, how m any times have you moved where you were living? 0 03/06/2024 At any time in the past 12 m [place] [place], were you homeless or living in a snf (including now)? No 03/06/2024 Personal Safety Answer Date Recorded Have you ever been in or are you currently in a harmful physical or emotional relationship or is someone making you feel afraid or unsafe? Denies 03/05/2024 Sex and Gender Information Value Date Recorded Sex Assigned at Not on file Legal Sex Male 3:08 AM HOSPITAL SCIENTIST Gender Identity Not on file Sexual Orientation Straight 11/24/2020 7: 05 PM CDT Last Filed Vital Signs Vital Sign Reading Time Taken Comments Blood Pressure 121/64 12/04/2024 12:35 PM CDT Pulse 53 12/04/2024 12:35 PM CDT Temperature 36.8 C (98.3 F) 12/04/2024 12:35 PM CDT Respiratory Rate 18 03/05/2024 3:30 PM CDT Oxygen Saturation 97% 09/14/2024 10:53 AM HOSPITAL SCIENTIST Inhaled Oxygen Concentration - - Weight 124.3 kg (274 lb) 09/14/2024 10:53 AM HOSPITAL SCIENTIST Height 180.3 cm (5' 11 ) 12/04/2024 9:49 AM CDT Body Mass Index 38.22 09/14/2024 10:53 AM HOSPITAL SCIENTIST Plan of Treatment Not on file Medical Devices Implanted Type Area Structural Iron Worker Device Identifier Shelf Expiration Date Model / Serial / Lot Charis Spine Escalate 5mm Expandable Spine Cervical Plate Bone Titanium [id number] - [id number] Implanted:Qty: 3 on 02/28/2024 by Audi Rahman MD at [facility] N/A: Spine Cervical [place] Spine [id number] / / [place] Spine Escalate 2mm 6mm Self Drill Spine Cervical Screw Bone Nonsterile [id number] - [id number] Implanted:Qty: 3 on 02/28/2024 by Audi Rahman MD at [facility] N/A: Spine Cervical [place] [employer]ine [id number] / / [place] Spine Escalate 2mm 8mm Self Drill Spine Cervical Screw Bone Nonsterile [id number] - [id number] Implanted:Qty: 6 on 02/28/2024 by Audi Rahman MD at [facility] N/A: Spine Cervical [place] Spine [id number] / / Procedures Procedure Name Priority Date/Time Associated Diagnosis Comments COLONOSCOPY 08/30/2022 9:57 AM HOSPITAL SCIENTIST from Last 3 Months or Most Recently Relevant to Health Maintenance Results * COLONOSCOPY (08/30/2022 9:57 AM HOSPITAL SCIENTIST) Anatomical Region Laterality Modality Other Narrative Procedure Note Hai Ibrahim MD - 08/30/2022 9:[address] [facility] Patient Name: Tanner Shah Procedure Date: 08/30/2022 9:57 AM Date of : 1955 Admit Type: Outpatient Age: 67 Gender: Male Attending MD: Hai Ibrahim M.D. Room: [facility] ENDOSCOPY ROOM 2 Note Status: Finalized Patient Profile: Refer to note in patient chart for documentation of history and physical. Procedure: Colonoscopy Indications: High risk colon cancer surveillance: Personalhistory of colonic polyps Referring MD: Nusrat Little MD Providers: Hai Ibrahim M.D. Impression: - Hemorrhoids found on perianal exam. - The entire examined colon is normal. - No specimens collected. Recommendation: - Discharge patient to home. - Resume previous diet. - Continue present medications. - Repeat colonoscopy in 5 years for surveillance. - Return to primary care physician as previously scheduled. Medicines: Propofol per Anesthesia Complications: No immediate complications. Estimated Blood Loss: Estimated blood loss: none. Procedure: Pre-Anesthesia Assessment: - This assessment was completed [Time ofAssessment] prior to the administration of sedation. The benefits, risks and alternatives of theprocedure and sedation were discussed and informed consentwas obtained. All questions were answered. Please referto the signed informed consent document in the medical record. The bowel preparation used was Miralax via single dose instruction. The bowel preparation used was bisacodyl tablets via single dose instruction.The scope was passed under direct vision. TheColonoscope [id number] was introduced through the anus and advanced to the the cecum, identified by appendiceal orifice and ileocecal valve. The colonoscopy was performed without difficulty. The patient tolerated the procedure well. The qualityof the bowel preparation was good. The ileocecalvalve, appendiceal orifice, and rectum werephotographed. Findings: Hemorrhoids were found on perianal exam. The colon (entire examined portion) appeared normal. Electronically signed by aHi Ibrahim M.D. Hai Ibrahim M.D. 08/30/2022 11:01:15 AM Number of Addenda: 0 Note Initiated On: 08/30/2022 9:57 AM Procedure Code(s): --- Professional --- G0105, Colorectal cancer screening; colonoscopy on individual at high risk Diagnosis Code(s): --- Professional --- K64.9, Unspecified hemorrhoids Z86.010, Personal history of colonic polyps CPT copyright 2020 [employer]. All rights reserved. The codes documented in this report are preliminary and upon supervisor power reactor reviewmay be revised to meet current compliance requirements. Recognized by the [employer] for promoting quality in endoscopy Hai Ibrahim MD ENDOSCOPY PROCEDURES Final Re sult from Last 3 Months or Most Recently Relevant to Health Maintenance [place] [id number] MEDICARE [facility] SENIOR SUPPLEMENT MEDICARE [facility] [place] [address] MEDICARE [employer] SENIOR SUPPLEMENT * Guarantor: TESSA GENAO [id number] Account Type Relation to Patient Date of Phone Billing Address Research Advance Directives For more information, please contact: [phone] * Full Code (Latest Code Status on File) Date Activated Date Inactivated Comments 02/28/2024 5:38 PM 03/02/2024 9:11 PM * Full Code Date Activated Date Inactivated Comments 08/30/2022 9:52 AM 08/30/2022 3:55 PM * Full Code Date Activated Date Inactivated Comments 01/12/2022 4:05 AM 01/13/2022 9:30 PM * Full Code Date Activated Date Inactivated Comments 11/28/2020 1:15 PM 11/28/2020 7:08 PM Care Teams Noteman Relationship Specialty Start Date End Date Derik Oglesby MD [address] [place] [address] PCP - General Internal Medicine 08/08/24
--- OUTSIDE RECORDS SUMMARY | 2024-12-14 14:11 | XMS_ITS | Clinical Summary ---
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 Active acetaminophen (TYLENOL) 325 mg [...] 0 11/28/2023 Erectile dysfunction of organic origin Encounter for screening colonoscopy 06/02/2022 Overview (06/02/2022): Added automatically from request for surgery [id number] Chest pain 01/12/2022 Coronary artery disease of n ative artery of [place] heart with stable angina pectoris 06/24/2021 Microvascular angina 06/24/2021 Dyspnea on exertion 06/24/2021 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 Deviated nasal septum 05/22/2018 Overview (05/22/2018): Added automatically from request for surgery [id number] Hypertrophy of nasal turbinates 05/22/2018 Overview (05/22/2018): Added automatically from request for surgery [id number] Chronic sinusitis 12/15/2017 Obesity with body mass index 30 or greater 10/01 Elbow pain 03/25/2016 Cutaneous abscess 05/18/2011 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 Hyperlipidemia Family history of premature CAD Essential hypertension COVID-19 Encounters Date Type Department Care Team Description 12/04/2024 11:30 AM CDT Office Visit [facility] [address] [place] [address] [address] [place] [address] Apurva Powell, DIAN Common variable immunodeficiency (HCC) (Primary Dx) 12/04/2024 9:30 AM CDT Infusion [facility] [address] [place] [address] [address] [place] [address] Common variable agammaglobulinemia (Primary Dx) 11/13/2024 9:30 AM CDT Infusion [facility] [address] [place] [address] [address] [place] [address] Common variable agammaglobulinemia (Primary Dx) 10/23/2024 9:30 AM MERCHANDISE FLOW TEAM MEMBER Infusion [facility] [address] [place] [address] Office [address] [place] [address] Common variable agammaglobulinemia (Primary Dx) 10/02/2024 9:30 AM MERCHANDISE FLOW TEAM MEMBER Infusion [facility] [address] [facility] Office Building [address] [place] [address] Common variable agammaglobulinemia (Primary Dx) from Last 3 Months Immunizations Immunization Administration Dates Next Due Influenza, Quadrivalent, Spl it, Preservative Free, Intramuscular 07/28/2020,09/19/2019,06/06/2018,04/21 Influenza, Trivalent, IM (MDV) 05/09/2013 Massage Envy (J&J) SARS-CoV-2 Vaccination 10/27/2020 Moderna SARS-CoV-2 Monovalen t Vaccination (12+ YRS) 06/15/2021 Pneumococcal Conjugate PCV 13 03/26/2015 Pneumococcal Polysaccharide PPV23 07/20/2018, ZOSTER Recombinant 09/24/2020,09/19/2019 Surgical History Surgery Date Site/Laterality Comments [place] APPENDECTOMY Appendectomy - (Added by TW Conv) CYSTOSCOPY 08/22/2003 - 08/21/2004 TESTICLE SURGERY removal of one testicle CARDIAC CATHETERIZATION 08/22/2012 - 08/21/2013 COLONOSCOPY 08/30/2022 CARDIAC CATHETERIZATION 11/20/2020 - 12/19/2020 ~ 50% narrowing just after first septal, < 30% disease pCirx REFRACTIVE SURGERY 08/22/1999 - 08/21/2000 Bilateral SINUS SURGERY NASAL SEPTUM SURGERY 08/22/2017 - 08/21/2018 Medical History Medical History Date Comments Allergy status to unspecifie d drugs, medicaments and biological substances status History o f seasonal allergies - (Added by TW Conv) Personal history of other di seases of the respiratory system History of asthma - (Added b y TW Conv) Personal history of diseases of the blood and blood-forming organs and certain disorders involving the immune mechanism History of autoimmune d isorder - (Added by TW Conv) Personal history of other me ntal and behavioral disorders History of depression - (Add ed by TW Conv) Personal history of other di seases of the circulatory system History of hypertension - (A dded by TW Conv) Chronic sinusitis Recurrent sinu s infections - (Added by TW Conv) 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 on 07/07 Asthma Hyperlipidemia Sleep apnea CPAP Epididymitis Hypertension CVID (common variable immunodeficiency) (HCC) Depression Arthritis COPD (chronic obstructive pu lmonary disease) (HCC) Anxiety Erectile dysfunction of organic origin HL (hearing loss) Tinnitus PONV (postoperative nausea and vomiting) Family History Medical History Relation Name Comments Coronary artery disease Brother Mark Shah CABG Heart attack Brother Mark Shah 35 Hypertension Brother Mark Shah Kidney cancer Brother Mark Shah Family history of malignant neoplasm of kidney - (Added by TW Conv) Brain cancer Father Hao Shah Family histo ry of glioblastoma - (Added by TW Conv) Rheum arthritis Father Hao Shah Heart attack Father's Sister Heart attack Maternal Grandfather Isac Lizbet Heart failure Maternal Grandfather Isac Lizbet Heart attack Maternal Grandmother Nicole Lindseyhn early 6 0s Heart failure Maternal Grandmother Nicole Somers Brain Aneurysm Mother Alexsandra Ingram Brain cancer Mother Alexsandra Ingram Family histor y of glioblastoma - (Added by TW Conv) Coronary artery disease Mother Alexsandra Ingram Hearing loss Mother Alexsandra Ingram Heart attack Mother Alexsandra Ingram Heart disease Mother Alexsandra Ingram diagnosed in 40s Heart failure Mother Alexsandra Nataly Hypertension Mother Alexsandra Nataly Seizures Mother Alexsandra Bohdelores Heart attack Mother's Brother Heart disease Other Family history of cardiac disorder - (Added by TW Conv) Heart attack Paternal Grandfather Andrei Shah Heart failure Paternal Grandfather Andrei Shah Heart failure Sister Cassandra Carbajal Hypertension Sister Cassandra Carbajal Anesthesia problems Neg Hx Relation Name Status Comments Brother Mark Shah Father's Sister Maternal Grandfather Isac Somers Maternal Grandmother Nicole Somers Mother Alexsandra Ingram Mother's Brother Other Paternal Grandfather Andrei Shah Sister Cassandra Gipsont Social History Tobacco Use Types Packs/Day Years Used Date Smoking Tobacco: Former Cigarettes 1 - 2002 Passive Smoke Exposure: Past Smokeless Tobacco: Never Tobacco Cessation:Counseling Given: Not Answered Alcohol Use Standard Drinks/Week Comments No 0 (1 standard drink = 0.6 oz pur e alcohol) [facility] Utilities Answer Date Recorded In the past 12 months has e [facility], gas, oil, or water [employer] threatened to shut off services in your [...] often do you attend chur ch or roman catholic services? More than 4 times per year 03/06/2024 Do you belong to any clubs o r organizations such as holiness groups, unions, fraternal or athletic groups, or [...] any time in the past 12 m [facility], were you homeless or living in a senior living (including now)? No 03/06/2024 Personal Safety Answer Date Recorded Have you ever been in or are you currently in a harmful physical or emotional relationship or is someone making you feel afraid or unsafe? Denies 03/05/2024 Sex and Gender Information Value Date Recorded Sex Assigned at Not on file Legal Sex Male 3:08 AM MERCHANDISE FLOW TEAM MEMBER Gender Identity Not on file Sexual Orientation Straight 11/24/2020 7: 05 PM CDT Obstetrics History Last Filed Vital Signs Vital Sign Reading Time Taken Comments Blood Pressure 121/64 12/04/2024 12:35 PM CDT Pulse 53 12/04/2024 12:35 PM CDT Temperature 36.8 C (98.3 F) 12/04/2024 12:35 PM CDT Respiratory Rate 18 03/05/2024 3:30 PM CDT Oxygen Saturation 97% 09/14/2024 10:53 AM MERCHANDISE FLOW TEAM MEMBER Inhaled Oxygen Concentration - - Weight 124.3 kg (274 lb) 09/14/2024 10:53 AM MERCHANDISE FLOW TEAM MEMBER Height 180.3 cm (5' 11 ) 12/04/2024 9:49 AM CDT Body Mass Index 38.22 09/14/2024 10:53 AM MERCHANDISE FLOW TEAM MEMBER Plan of Treatment Health Maintenance Due Date Last Done Comments Depression Screening 1955 Hepatitis C Screening 1955 Prostate Cancer Screening-PSA 1955 DTaP/Tdap/Td Vaccine (1 - Tdap) 02/24/1967 Hepatitis B Screening 02/24/1974 Abdominal Aortic Aneurysm (A AA) Screen 02/24/2021 Well Visit 65+ 02/24/2021 Pneumococcal vaccine 65+ (4 of 4 - PCV20 or PCV21) 07/20/2023 07/20/2018, 03/26/2015, 05/09/2013 Covid-19 Vaccine (3 - 2023-2 5 season) 2024 06/15/2021, 10/27/2020 Fall Risk Assessment 03/02/2025 03/02/2024 Influenza Vaccine (Season Ended) 2025 07/28/2020, 09/19/2019, 06/06/2018, Additional history exists Colon Cancer Screening-Colonoscopy 08/30/2032 08/30/2022 Zoster Vaccine Completed 09/24/2020, 09/19/2019 Colon Cancer Screening-CT Colonography Discontinued 08/30/2022 Colon Cancer Screening-DNA Stool Discontinued 08/30/19 Colon Cancer Screening-FIT Discontinued 08/30/2022 Colon Cancer Screening-Sigmoidoscopy Discontinued 08/30/2022 Medical Devices Implanted Type Area Fabrication Specialist Device Identifier Shelf Expiration Date Model / Serial / Lot Charis Spine Escalate 5mm Expandable Spine Cervical Plate Bone Titanium [id number] - [id number] Implanted:Qty: 3 on 02/28/2024 by Audi Rahman MD at [facility] N/A: Spine Cervical [place] Spine [id number] / / Saluda Spine Escalate 2mm 6mm Self Drill Spine Cervical Screw Bone Nonsterile [id number] - [id number] Implanted:Qty: 3 on 02/28/2024 by Audi Rahman MD at [facility] N/A: Spine Cervical Charis Spine [id number] / / Charis Spine Escalate 2mm 8mm Self Drill Spine Cervical Screw Bone Nonsterile [id number] - [id number] Implanted:Qty: 6 on 02/28/2024 by Audi Rahman MD at [facility] N/A: Spine Cervical [place] Spine [id number] / / Procedures Procedure Name Priority Date/Time Associated Diagnosis Comments COLONOSCOPY 08/30/2022 9:57 AM MERCHANDISE FLOW TEAM MEMBER from Last 3 Months or Most Recently Relevant to Health Maintenance Results * COLONOSCOPY (08/30/2022 9:57 AM MERCHANDISE FLOW TEAM MEMBER) Anatomical Region Laterality Modality Other Narrative Procedure Note Hai Ibrahim MD - 08/30/2022 9:57 AM CST [facility] Patient Name: Tanner Shah Procedure Date: 08/30/2022 9:57 AM Date of : 1955 Admit Type: Outpatient Age: 67 Gender: Male Attending MD: Hai Ibrahim M.D. Room[facility] 2 Note Status: Finalized [...] scope was passed under direct vision. TheColonoscope [id number] was introduced through the anus and advanced to the the cecum, identified by appendiceal orifice and ileocecal valve. The colonoscopy was performed without difficulty. The patient tolerated the procedure well. The qualityof the bowel preparation was good. The ileocecalvalve, appendiceal orifice, and rectum werephotographed. Findings: Hemorrhoids were found on perianal exam. The colon (entire examined portion) appeared normal. Electronically signed by Hai Ibrahim M.D. Hai Ibrahim M.D. 08/30/2022 11:01:15 AM Number of Addenda: 0 Note Initiated On: 08/30/2022 9:57 AM Procedure Code(s): --- Professional --- G0105, Colorectal cancer screening; colonoscopy on individual at high risk Diagnosis Code(s): --- Professional --- K64.9, Unspecified hemorrhoids Z86.010, Personal history of colonic polyps CPT copyright 2020 [employer]. All rights reserved. The codes documented in this report are preliminary and upon remote inpatient coder reviewmay be revised to meet current compliance requirements. Recognized by the [place] [employer] for promoting quality in endoscopy Hai Ibrahim MD ENDOSCOPY PROCEDURES Final Re sult from Last 3 Months or Most Recently Relevant to Health Maintenance Insurance MEDICARE [employer] SENIOR SUPPLEMENT MEDICARE [facility] SENIOR SUPPLEMENT MEDICARE [employer]ET[employer] SENIOR SUPPLEMENT * Guarantor: TESSA GENAO [id number] Account Type Relation to Patient Date of Phone Billing Address Research Advance Directives For more information, please contact: [phone] * Full Code (Latest Code Status on File) Date Activated Date Inactivated Comments 02/28/2024 5:38 PM 03/02/2024 9:11 PM * Full Code Date Activated Date Inactivated Comments 08/30/2022 9:52 AM 08/30/2022 3:55 PM * Full Code Date Activated Date Inactivated Comments 01/12/2022 4:05 AM 01/13/2022 9:30 PM * Full Code Date Activated Date Inactivated Comments 11/28/2020 1:15 PM 11/28/2020 7:08 PM Care Teams Wound Care Technician Relationship Specialty Start Date End Date Derik Oglesby MD [address] [place] [address] PCP - General Internal Medicine 08/08/24
--- OUTSIDE RECORDS SUMMARY | 2024-12-14 14:11 | XMS_ITS | Encounter Summary ---
Author Organization [facility] Address [address] [place] [address] Phone Care Team Providers Care Email Production Consultant Name Role Phone Nusrat Little MD Primary Care Provider [phone] Tammy Branch RN Unavailable [phone] Derik Oglesby MD Primary Care Provider [phone] Encounter Details Date Type Department Care Team (Latest Contact Info) Description 08/18/2023 Orders Only [facility] Gail Cash RN Social History Tobacco Use Types Packs/Day Years Used Date Smoking Tobacco: Former Cigarettes - 2002 Passive Smoke Exposure: Past Smokeless Tobacco: Never Alcohol Use Standard Drinks/Week Comments No 0 (1 standard drink = 0.6 oz pur e alcohol) AUDIT-C Answer Date Recorded Q1: How often do you have a drink containing alc ohol? 2-4 times a month 11/02/2022 Average Number of Drinks Not on file 023 Frequency of Binge Drinking Not on file 10/20 Personal Safety Answer Date Recorded Getting School Help Needed Denies 08/02 Sex and Gender Information Value Date Recorded Sex Assigned at Not on file Legal Sex Male 3:08 AM EAP CONSULTANT Gender Identity Not on file Sexual Orientation Straight 11/24/2020 7: 05 PM CDT documented as of this encounter Plan of Treatment Not on file documented as of this encounter Procedures Procedure Name Priority Date/Time Associated Diagnosis Comments SCAN - LABS 08/18/2023 documented in this encounter Results * SCAN - LABS (08/18/2023) us Gail Cash RN Final Result documented in this encounter Visit Diagnoses Not on filedocumented in this encounter Care Teams Email Production Consultant Relationship Specialty Start Date End Date Nusrat Little MD [address] [place] [address] PCP - General Internal Medicine 06/29/18 08/07/24 Derik Oglesby MD [address] [place] [address] PCP - General Internal Medicine 08/08/24 Tammy Branch RN [address] [address] [facility] Outpatient Regulatory Lead 03/05/24 03/29/24 documented as of this encounter
--- OUTSIDE RECORDS SUMMARY | 2024-12-14 14:12 | XMS_ITS | Encounter Summary ---
Author Organization [facility] Address [address] [place] [address] Phone Care Team Providers Care Track Subway Repair Supervisor Name Role Phone Nusrat Little MD Primary Care Provider [phone] Tammy Branch RN Unavailable [phone] Derik Oglesby MD Primary Care Provider [phone] Encounter Details Date Type Department Care Team (Latest Contact Info) Description 12/07/2021 Orders Only [facility] Scanning, Provider Social History Tobacco Use Types Packs/Day Years Used Date Smoking Tobacco: Former Cigarettes 1 2002 Smokeless Tobacco: Never Alcohol Use Standard Drinks/Week Comments No 0 (1 standard drink = 0.6 oz pur e alcohol) AUDIT-C Answer Date Recorded Q1: How often do you have a drink containing alc ohol? 2-4 times a month 11/28/2020 Q2: How many drinks containi ng alcohol do you have on a typical day when you are drinking? 1 or 2 11/28/2020 Q3: How often do you have si x or more drinks on one occasion? Never 11/28/2020 Sex and Gender Information Value Date Recorded Sex Assigned at Not on file Legal Sex Male 3:08 AM RECYCLING TECH Gender Identity Not on file Sexual Orientation Straight 11/24/2020 7: 05 PM CDT documented as of this encounter Plan of Treatment Not on file documented as of this encounter Procedures Procedure Name Priority Date/Time Associated Diagnosis Comments SCAN - LABS 12/07/2021 documented in this encounter Results * SCAN - LABS (12/07/2021) us Provider Scanning Final Result documented in this encounter Visit Diagnoses Not on filedocumented in this encounter Additional Health Concerns Infection Onset Date Last Indicated Resolved Time COVID19 01/11/2022 01/11/2022 01/23/2022 3:05 AM CDT documented as of this encounter Care Teams Track Subway Repair Supervisor Relationship Specialty Start Date End Date Nusrat Little MD [address] [place] [address] PCP - General Internal Medicine 06/29/18 08/07/24 Derik Oglesby MD [address] [place] [address] PCP - General Internal Medicine 08/08/24 Tammy Branch RN [address] [address] [facility] Outpatient Automotive Mechanical Engineer 03/05/24 03/29/24 documented as of this encounter
--- OUTSIDE RECORDS SUMMARY | 2024-12-14 14:12 | XMS_ITS | Encounter Summary ---
Author Organization [facility] Address [address] [place] [address] Phone Care Team Providers Care Stucco Worker Name Role Phone Nusrat Little MD Primary Care Provider [phone] Tammy Branch RN Unavailable [phone] Derik Oglesby MD Primary Care Provider [phone] Encounter Details Date Type Department Care Team (Latest Contact Info) Description 12/07/2021 Orders Only [facility] Same, Fahad Yan MD [address] [place] [address] Social History Tobacco Use Types Packs/Day Years Used Date Smoking Tobacco: Former Cigarettes - 2002 Smokeless Tobacco: Never Alcohol Use Standard [...] on file Legal Sex Male 3:08 AM QUALITY MANAGER Gender Identity Not on file Sexual Orientation Straight 11/24/2020 7: 05 PM CDT documented as of this encounter Plan of Treatment Not on file documented as of this encounter Procedures Procedure Name Priority Date/Time Associated Diagnosis Comments SCAN - LABS 12/07/2021 documented in this encounter Results * SCAN - LABS (12/07/2021) Fahad Yan Same, MD Final Re sult documented in this encounter Visit Diagnoses Not on filedocumented in this encounter Additional Health Concerns Infection Onset Date Last Indicated Resolved Time COVID19 01/11/2022 01/11/2022 01/23/2022 3:05 AM CDT documented as of this encounter Care Teams Stucco Worker Relationship Specialty Start Date End Date Nusrat Little MD [address] [place] [address] PCP - General Internal Medicine 06/29/18 08/07/24 Derik Oglesby MD [address] [place] [address] PCP - General Internal Medicine 08/08/24 Tammy Branch RN [address] [address] [facility] Outpatient Manager Psychiatry 03/05/24 03/29/24 documented as of this encounter
[2024-12-14 14:27] LABS: Hematocrit 36.1 % (37.0-46.0); Hemoglobin 11.5 g/dL (12.4-15.3); Mean Corpuscular HGB Conc 31.9 g/dL (32-36); Mean Corpuscular Volume 91.2 fL (78.0-102.0); Mean Platelet Volume 9.2 fl (8.7-11.0); Platelet Count Result 258 K/mm3 (150-420); Red Blood Count 3.96 M/mm3 (4.70-6.10); Red Cell Distribution Width 12.2 % (11.6-14.4); White Blood Count 8.7 K/mm3 (4.8-10.8)
[2024-12-14 14:39] LABS: Anion Gap 8 mmol/L (4-12); Blood Urea Nitrogen 24 mg/dL (7-18); Calcium 8.7 mg/dL (8.5-10.1); Carbon Dioxide 26 mmol/L (21-32); Chloride 103 mmol/L (98-108); Estimated Glomerular Filt Rate 37; Glucose 100 mg/dL (70-99); Osmolality Calculated 288 mOsm/kg (285-295); Potassium 4.8 mmol/L (3.5-5.1); Sodium 137 mmol/L (136-145)
== END 2024-12-14 14:06 | disposition home or self-care (01) ==
LOC: CHSLAB 14:08
PROVIDERS: PCP Internal Medicine; Visit Provider Nurse Practitioner Family
DX: R05.8 Other specified cough (principal); R06.2 Wheezing; R06.02 Shortness of breath
CPT/HCPCS: 36415; 71046; 80048; 85027